=== PATIENT | female | born 1960 | race Two or more races ===

== ENCOUNTER → 2021-04-28 | Outpatient (CLI) | payer MEDICAID ==
[~2021-04-28] MED LIST: BENZ0.5T19 PO; CEPH250C28 PO; CILO100T PO; FURO20TA3 PO; GLIP5TAB12 PO; HYDR-4609 PO; LOSA-69 PO; METO-158 PO; OMEP-260 PO; PARO-135 PO; POTA-220 PO
[2021-04-28 10:25] VITALS: BP 113/71
[2021-04-28 10:40] VITALS: BP 119/63
[2021-04-28 12:03] LABS: Calcium 9.2 mg/dL (8.5-10.1); Potassium 3.8 mmol/L (3.5-5.1)
[2021-04-28 12:05] LABS: BUN/Creatinine Ratio 17.5
[2021-04-28 12:06] LABS: INR 1.04 (0.9-1.15); Partial Thromboplastin Time 30.2 sec (23.6-33.0)
[2021-04-28 12:12] LABS: Basophils # (auto) 0 10 ^3/uL (0-0.2); Basophils % (auto) 0.5 % (0.0-2.0); Eosinophils # (auto) 0.2 10 ^3/uL (0-0.8); Eosinophils % (auto) 2.8 % (0.0-7.0); Hematocrit 36.9 % (36.0-46.0); Hemoglobin 12.5 g/dL (12.2-16.2); Lymphocytes # (auto) 1.9 10 ^3/uL (0.4-5.4); Mean Corpuscular Hemoglobin 28.7 pg (28.0-32.0); Mean Corpuscular Hgb Conc. 33.8 g/dL (32.0-36.0); Monocytes # (auto) 0.7 10 ^3/uL (0-1.3); Monocytes % (auto) 8.5 % (0.0-12.0); Neutrophils # (auto) 5.4 10 ^3/uL (1.6-8.6); Neutrophils % (auto) 65.2 % (37.0-80.0); Red Blood Cells 4.34 10^6/uL (4.0-5.20); White Blood Cell 8.3 10^3/uL (4.4-10.8)
== END | disposition home or self-care (01) ==
LOC: Rad HDHVI 10:08
PROVIDERS: ATTEND Internal Medicine Cardiovascular Disease
DX: Z01.812 Encounter for preprocedural laboratory examination (principal); I11.0 Hypertensive heart disease with heart failure; I50.9 Heart failure, unspecified; R06.02 Shortness of breath; E66.9 Obesity, unspecified; I70.0 Atherosclerosis of aorta
CPT/HCPCS: 36415; 71046; 80048; 85025; 85610; 85730; 93005; G0463

== ENCOUNTER 2021-05-01 07:05 | Day surgery (SDC) | payer MEDICAID ==
[2021-05-01] VITALS (7 sets, daily range): BP systolic 90–127; BP diastolic 60–80
[~2021-05-01] VITALS: Ht 175.3 cm; Wt 142.9 kg
[2021-05-01] MEDS ORDERED: IOHEXOL 350 MG/ML 100ML IJ ONE (09:31)
[2021-05-01] MEDS ORDERED: LIDOCAINE 2%HCL (LOCAL ANESTH.) INJ 20ML MDV ONE (09:31)
[2021-05-01] MEDS ORDERED: ANGIOMAX 250 MG VIAL IV ONE (10:48)
[2021-05-01] MEDS ORDERED: fentaNYL CITRATE 100 MCG/2 ML VL ONE (10:48)
[2021-05-01] MEDS ORDERED: MIDAZOLAM HCL 2MG/2ML 2ml VIAL (1mg/ml) ONE (10:49)
[2021-05-01] MEDS ORDERED: SODIUM CHL 0.9% 0 ML ONE (10:49)
== END 2021-05-01 13:25 | disposition home or self-care (01) ==
LOC: CATH 07:05
PROVIDERS: ATTEND Internal Medicine Cardiovascular Disease
DX: R07.9 Chest pain, unspecified (principal); I42.0 Dilated cardiomyopathy; E66.01 Morbid (severe) obesity due to excess calories; I11.0 Hypertensive heart disease with heart failure; I50.20 Unspecified systolic (congestive) heart failure; E11.42 Type 2 diabetes mellitus with diabetic polyneuropathy; E78.5 Hyperlipidemia, unspecified; Z82.49 Family history of ischemic heart disease and other diseases of the circulatory system; Z86.79 Personal history of other diseases of the circulatory system; Z20.822 Contact with and (suspected) exposure to COVID-19; Z68.42 Body mass index [BMI] 45.0-49.9, adult
CPT/HCPCS: 93458; C1760; C1894; J1644; J2250; J3010; Q9967; U0003; 99152

== ENCOUNTER 2021-06-04 15:29 | Emergency (ER) | payer MEDICAID ==
[~2021-06-04] VITALS: Ht 177.8 cm; Wt 137.9 kg
[2021-06-04 16:28] LABS: Basophils # (auto) 0 10 ^3/uL (0-0.2); Basophils % (auto) 0.5 % (0.0-2.0); Eosinophils # (auto) 0 10 ^3/uL (0-0.8); Eosinophils % (auto) 0.7 % (0.0-7.0); Hematocrit 39.6 % (36.0-46.0); Hemoglobin 13.6 g/dL (12.2-16.2); Lymphocytes # (auto) 1.2 10 ^3/uL (0.4-5.4); Lymphocytes % (auto) 17.6 % (10.0-50.0); Mean Corpuscular Hgb Conc. 34.2 g/dL (32.0-36.0); Mean Corpuscular Volume 84.7 fL (80.0-100.0); Monocytes # (auto) 0.8 10 ^3/uL (0-1.3); Monocytes % (auto) 11.3 % (0.0-12.0); Neutrophils # (auto) 4.8 10 ^3/uL (1.6-8.6); Neutrophils % (auto) 69.9 % (37.0-80.0); Nucleated Red Blood Cells % 0.1 %; Red Blood Cells 4.68 10^6/uL (4.0-5.20); Red Cell Distribution Width 13.9 % (11.8-14.3); White Blood Cell 6.8 10^3/uL (4.4-10.8)
[2021-06-04 16:40] LABS: Albumin 3.5 g/dL (3.4-5.0); Potassium 3.9 mmol/L (3.5-5.1)
[2021-06-04 16:44] LABS: Bilirubin, Total 0.3 mg/dL (0.2-1.0); Total Protein 8.2 g/dL (6.4-8.2)
[2021-06-04 17:41] VITALS: BP 125/66
== END 2021-06-04 17:51 | disposition home or self-care (01) ==
LOC: ER 15:29
DX: R06.02 Shortness of breath (principal); Z20.822 Contact with and (suspected) exposure to COVID-19
CPT/HCPCS: 36415; 71045; 80053; 84484; 85025; 87426; 93005

== ENCOUNTER 2021-06-12 00:10 | Emergency (ER) | payer MEDICAID ==
[2021-06-12 02:44] LABS: Basophils # (auto) 0.1 10 ^3/uL (0-0.2); Basophils % (auto) 0.5 % (0.0-2.0); Eosinophils # (auto) 0.2 10 ^3/uL (0-0.8); Eosinophils % (auto) 1.8 % (0.0-7.0); Hematocrit 41.1 % (36.0-46.0); Hemoglobin 13.9 g/dL (12.2-16.2); Lymphocytes # (auto) 2.5 10 ^3/uL (0.4-5.4); Mean Corpuscular Hemoglobin 29.1 pg (28.0-32.0); Mean Corpuscular Hgb Conc. 33.7 g/dL (32.0-36.0); Mean Corpuscular Volume 86.4 fL (80.0-100.0); Monocytes # (auto) 0.7 10 ^3/uL (0-1.3); Monocytes % (auto) 7.2 % (0.0-12.0); Neutrophils # (auto) 6.9 10 ^3/uL (1.6-8.6); Neutrophils % (auto) 66.5 % (37.0-80.0); Nucleated Red Blood Cells % 0.3 %; Red Blood Cells 4.76 10^6/uL (4.0-5.20); Red Cell Distribution Width 13.9 % (11.8-14.3); White Blood Cell 10.4 10^3/uL (4.4-10.8)
[2021-06-12 03:03] LABS: Albumin 3.4 g/dL (3.4-5.0); Calcium 8.8 mg/dL (8.5-10.1); Potassium 3.9 mmol/L (3.5-5.1)
[2021-06-12 03:09] LABS: Bilirubin, Total 0.2 mg/dL (0.2-1.0); Total Protein 7.9 g/dL (6.4-8.2)
[2021-06-12 06:10] VITALS: BP 98/57
== END 2021-06-12 06:46 | disposition home or self-care (01) ==
LOC: EDBD 00:10 → ER 00:10
DX: G51.0 Bell's palsy (principal); Z79.899 Other long term (current) drug therapy
CPT/HCPCS: 36415; 70450; 80053; 84484; 85025; 93005

== ENCOUNTER 2022-02-17 04:03 | Inpatient (IN) | payer MEDICAID ==
[~2022-02-17] VITALS: Ht 175.3 cm; Wt 134.5 kg
[2022-02-17] MEDS ORDERED: NITROGLYCERIN 0.4 MG SL TAB SL ONE (04:15)
[2022-02-17] MEDS ORDERED: ASPirin 325 MG TAB PO ONE (04:15)
[2022-02-17] MEDS ORDERED: FUROSEMIDE 20 MG/2 ML VIAL IV ONE (05:30)
[2022-02-17 05:36] LABS: Basophils # (auto) 0 10 ^3/uL (0-0.2); Basophils % (auto) 0.5 % (0.0-2.0); Eosinophils # (auto) 0.2 10 ^3/uL (0-0.8); Eosinophils % (auto) 2.5 % (0.0-7.0); Hematocrit 34.4 % (36.0-46.0); Hemoglobin 11.5 g/dL (12.2-16.2); Lymphocytes # (auto) 2.8 10 ^3/uL (0.4-5.4); Lymphocytes % (auto) 36.6 % (10.0-50.0); Mean Corpuscular Hemoglobin 28.8 pg (28.0-32.0); Mean Corpuscular Hgb Conc. 33.5 g/dL (32.0-36.0); Mean Corpuscular Volume 85.9 fL (80.0-100.0); Monocytes # (auto) 0.8 10 ^3/uL (0-1.3); Monocytes % (auto) 11.3 % (0.0-12.0); Neutrophils # (auto) 3.7 10 ^3/uL (1.6-8.6); Neutrophils % (auto) 49.1 % (37.0-80.0); Red Cell Distribution Width 13.6 % (11.8-14.3); White Blood Cell 7.5 10^3/uL (4.4-10.8)
[2022-02-17 05:49] LABS: Urine Bacteria MOD /hpf (None Seen); Urine Blood Negative /uL (Negative); Urine Mucus FEW (None Seen); Urine Specific Gravity 1.013 (1.001-1.035); Urine WBC 343 /hpf (0 - 5)
[2022-02-17 06:01] LABS: Potassium 3.7 mmol/L (3.5-5.1)
[2022-02-17 06:06] LABS: Albumin 3.5 g/dL (3.4-5.0); BUN/Creatinine Ratio 18.8; Calcium 9.7 mg/dL (8.5-10.1)
[2022-02-17 06:09] LABS: Bilirubin, Total 0.2 mg/dL (0.2-1.0); Total Protein 6.6 g/dL (6.4-8.2)
[2022-02-17] MEDS ORDERED: cefTRIAXone 1GM/50ML D5W 50 ML IV ONE (11:00)
[2022-02-17] MEDS ORDERED: MORPHINE SULFATE INJ 2 MG/ml SYRG IV PRN (11:00)
[2022-02-17] MEDS ORDERED: ONDANSETRON HCL 4 MG/2 ML VIAL IV PRN (11:00)
[2022-02-17] MEDS ORDERED: NITROGLYCERIN 0.4 MG SL TAB SL PRN (11:00)
[2022-02-17 23:35] VITALS: BP 125/66
[2022-02-18 05:00] VITALS: BP 141/81
[2022-02-18 05:35] LABS: Basophils # (auto) 0 10 ^3/uL (0-0.2); Basophils % (auto) 0.5 % (0.0-2.0); Eosinophils # (auto) 0.2 10 ^3/uL (0-0.8); Eosinophils % (auto) 2.5 % (0.0-7.0); Hemoglobin 11.9 g/dL (12.2-16.2); Lymphocytes # (auto) 2.3 10 ^3/uL (0.4-5.4); Lymphocytes % (auto) 29.2 % (10.0-50.0); Mean Corpuscular Hemoglobin 28.7 pg (28.0-32.0); Mean Corpuscular Hgb Conc. 33.9 g/dL (32.0-36.0); Mean Corpuscular Volume 84.5 fL (80.0-100.0); Monocytes # (auto) 0.7 10 ^3/uL (0-1.3); Monocytes % (auto) 9.2 % (0.0-12.0); Neutrophils # (auto) 4.6 10 ^3/uL (1.6-8.6); Neutrophils % (auto) 58.6 % (37.0-80.0); Nucleated Red Blood Cells % 0.1 %; Red Blood Cells 4.14 10^6/uL (4.0-5.20); Red Cell Distribution Width 13.7 % (11.8-14.3); White Blood Cell 7.9 10^3/uL (4.4-10.8)
[2022-02-18 05:38] LABS: Albumin 3.2 g/dL (3.4-5.0); Calcium 8.9 mg/dL (8.5-10.1); Potassium 3.6 mmol/L (3.5-5.1)
[2022-02-18 05:44] LABS: BUN/Creatinine Ratio 19.1; Bilirubin, Total 0.5 mg/dL (0.2-1.0)
[2022-02-18 09:00] VITALS: BP 137/80
[2022-02-18] MEDS: cefTRIAXone 1GM/50ML D5W 50 ML IV SCH (09:30)
[2022-02-18] MEDS: POTASSIUM CHL 10 Meq TABLET PO SCH (10:00)
[2022-02-18] MEDS ORDERED: ENOXAPARIN SOD 40 MG/0.4 ML SYRINGE SC SCH (10:00)
[2022-02-18] MEDS ORDERED: FUROSEMIDE 20 MG/2 ML VIAL IV SCH (10:00)
[2022-02-18 13:00] VITALS: BP 123/66
[2022-02-18] MEDS ORDERED: PANTOPRAZOLE 40 MG TAB PO ONE (13:45)
[2022-02-18] MEDS ORDERED: HYDROcodone-ACET 7.5/325MG TAB PO PRN (13:45)
[2022-02-18] MEDS ORDERED: DEXTROSE (50%) 50ML SYRG IV PRN (14:00)
[2022-02-18 14:37] VITALS: BP 123/66
[2022-02-18] MEDS: InsuLIN REG 1unit/0.01ml Soln (100units/ml) SC SCH ×2 (17:00→22:00)
[2022-02-18 17:01] VITALS: BP 125/63
[2022-02-18] MEDS: ACCU-CHEK COMFORT CURVE STRIP VI SCH ×2 (17:29→22:08)
[2022-02-18] MEDS ORDERED: PRAV20TA3 PO (18:41)
[2022-02-18 22:00] VITALS: BP 120/69
[2022-02-18] MEDS: ATORVASTATIN 20 MG TAB PO SCH (22:08)
[2022-02-18] MEDS: CILOSTAZOL 100 MG TAB PO SCH (22:08)
[2022-02-19 05:00] VITALS: BP 132/86
[2022-02-19] MEDS: ACCU-CHEK COMFORT CURVE STRIP VI SCH ×4 (06:18→21:47)
[2022-02-19] MEDS: InsuLIN REG 1unit/0.01ml Soln (100units/ml) SC SCH ×4 (06:23→21:48)
[2022-02-19 08:00] VITALS: BP 117/70
[2022-02-19] MEDS: cefTRIAXone 1GM/50ML D5W 50 ML IV SCH (09:20)
[2022-02-19] MEDS: ASPirin 81 mg TAB PO SCH (09:20)
[2022-02-19] MEDS: LOSARTAN POTASSIUM 50 MG TAB PO SCH (09:21)
[2022-02-19] MEDS: PANTOPRAZOLE 40 MG TAB PO SCH (09:21)
[2022-02-19] MEDS: POTASSIUM CHL 10 Meq TABLET PO SCH (09:21)
[2022-02-19] MEDS: FUROSEMIDE 20 MG TAB PO SCH (09:21)
[2022-02-19] MEDS: CILOSTAZOL 100 MG TAB PO SCH ×2 (09:22→21:35)
[2022-02-19] MEDS: PARoxetine 20 MG TAB PO SCH (09:22)
[2022-02-19] MEDS: BENZTROPINE MESY 0.5 MG TAB PO SCH (09:23)
[2022-02-19 12:00] VITALS: BP 130/89
[2022-02-19 16:00] VITALS: BP 105/69
[2022-02-19] MEDS: ATORVASTATIN 20 MG TAB PO SCH (21:36)
[2022-02-19] MEDS: CARVEDILOL 3.125 MG TAB PO SCH (21:36)
[2022-02-19 22:00] VITALS: BP 126/72
[2022-02-20 05:00] VITALS: BP 102/58
[2022-02-20] MEDS: ACCU-CHEK COMFORT CURVE STRIP VI SCH ×2 (06:08→12:29)
[2022-02-20] MEDS: InsuLIN REG 1unit/0.01ml Soln (100units/ml) SC SCH ×2 (06:08→11:30)
[2022-02-20] MEDS: CARVEDILOL 3.125 MG TAB PO SCH ×2 (09:11→10:11)
[2022-02-20] MEDS: cefTRIAXone 1GM/50ML D5W 50 ML IV SCH (09:11)
[2022-02-20] MEDS: PANTOPRAZOLE 40 MG TAB PO SCH (09:12)
[2022-02-20] MEDS: POTASSIUM CHL 10 Meq TABLET PO SCH (09:12)
[2022-02-20] MEDS: PARoxetine 20 MG TAB PO SCH (09:12)
[2022-02-20] MEDS: CILOSTAZOL 100 MG TAB PO SCH (09:12)
[2022-02-20] MEDS: ASPirin 81 mg TAB PO SCH (09:13)
[2022-02-20] MEDS: LOSARTAN POTASSIUM 50 MG TAB PO SCH (09:13)
[2022-02-20] MEDS: FUROSEMIDE 20 MG TAB PO SCH (09:13)
[2022-02-20] MEDS: BENZTROPINE MESY 0.5 MG TAB PO SCH (09:14)
[2022-02-20 10:00] VITALS: BP 106/48
[2022-02-20] MEDS ORDERED: POTA10TA32 PO (10:12)
[2022-02-20] MEDS ORDERED: LEVO500T31 PO (10:12)
[2022-02-20] MEDS ORDERED: FURO1TAB33 PO (10:12)
[2022-02-20 11:45] VITALS: BP 101/74
== END 2022-02-20 14:05 | disposition home or self-care (01) | DRG 243 ==
LOC: EDBD 04:03 → ER 04:03 → TELE 10:51 → TELE-CENTR 23:35
PROVIDERS: ADMIT Registered Nurse; ATTEND Internal Medicine
DX: K21.9 Gastro-esophageal reflux disease without esophagitis (principal); I50.43 Acute on chronic combined systolic (congestive) and diastolic (congestive) heart failure; E11.51 Type 2 diabetes mellitus with diabetic peripheral angiopathy without gangrene; I11.0 Hypertensive heart disease with heart failure; E66.01 Morbid (severe) obesity due to excess calories; E78.5 Hyperlipidemia, unspecified; N39.0 Urinary tract infection, site not specified; N31.9 Neuromuscular dysfunction of bladder, unspecified; Z20.822 Contact with and (suspected) exposure to COVID-19; G89.29 Other chronic pain; G47.30 Sleep apnea, unspecified; Z79.899 Other long term (current) drug therapy; Z68.41 Body mass index [BMI] 40.0-44.9, adult
CPT/HCPCS: 36415; 71045; 80053; 81001; 82962; 83036; 83880; 84443; 84484; 85025; 85379; 93005; 93306; 94660; 96365; 96375; 97116; 97163; 97530; G0378; J0696; J1815

== ENCOUNTER → 2022-03-10 | Outpatient (CLI) | payer MEDICAID ==
[~2022-03-10] MED LIST changes: -CEPH250C28 PO; +FURO1TAB33 PO; +LEVO500T31 PO; +POTA10TA32 PO; +PRAV20TA3 PO
== END | disposition home or self-care (01) ==
LOC: Rad HDHVI 11:04
PROVIDERS: ATTEND Internal Medicine Cardiovascular Disease
DX: I70.0 Atherosclerosis of aorta (principal); M47.814 Spondylosis without myelopathy or radiculopathy, thoracic region; R06.02 Shortness of breath; I25.10 Atherosclerotic heart disease of native coronary artery without angina pectoris; G47.33 Obstructive sleep apnea (adult) (pediatric)
CPT/HCPCS: 71046

== ENCOUNTER 2023-01-05 03:23 | Inpatient (IN) | payer MEDICAID ==
[~2023-01-05] VITALS: Ht 165.1 cm; Wt 114.4 kg
[~2023-01-05 03:23] MED LIST changes: -LOSA-69 PO; +LOSA50TA46 PO; -OMEP-260 PO; +OMEP1CAP70 PO; +POTA-228 PO; -POTA10TA32 PO
[2023-01-05 04:02] LABS: INR 1.06 (0.9-1.15); Partial Thromboplastin Time 29.1 SEC (24.5-34.5)
[2023-01-05 04:07] LABS: Albumin 3.2 g/dL (3.4-5.0); Magnesium 2.3 mg/dL (1.6-2.6)
[2023-01-05 04:10] LABS: BUN/Creatinine Ratio 12.6 (10.0-20.0); Bilirubin, Total 0.2 mg/dL (0.2-1.0)
[2023-01-05 04:22] LABS: Basophils # (auto) 0 10 ^3/uL (0-0.2); Basophils % (auto) 0.7 % (0.0-2.0); Eosinophils # (auto) 0.2 10 ^3/uL (0-0.8); Eosinophils % (auto) 2.6 % (0.0-7.0); Hematocrit 34.7 % (36.0-46.0); Hemoglobin 11.8 g/dL (12.2-16.2); Lymphocytes # (auto) 2.9 10 ^3/uL (0.4-5.4); Lymphocytes % (auto) 40.1 % (10.0-50.0); Mean Corpuscular Hemoglobin 29.3 pg (28.0-32.0); Mean Corpuscular Volume 86.3 fL (80.0-100.0); Monocytes # (auto) 0.6 10 ^3/uL (0-1.3); Monocytes % (auto) 8.8 % (0.0-12.0); Neutrophils # (auto) 3.5 10 ^3/uL (1.6-8.6); Neutrophils % (auto) 47.8 % (37.0-80.0); Nucleated Red Blood Cells % 0.1 %; Red Blood Cells 4.03 10^6/uL (4.0-5.20); White Blood Cell 7.2 10^3/uL (4.4-10.8)
[2023-01-05] MEDS ORDERED: IODIXANOL 320MG/ML 100ML BTL IV ONE (05:00)
[2023-01-05] MEDS ORDERED: NITROGLYCERIN 0.4 MG SL TAB SL PRN (06:45)
[2023-01-05] MEDS ORDERED: MORPHINE SULFATE INJ 2 MG/ml SYRG IV PRN (06:45)
[2023-01-05] MEDS ORDERED: DEXTROSE (50%) 50ML SYRG IV PRN (06:45)
[2023-01-05] MEDS ORDERED: ACETAMINOPHEN 325 MG TAB PO PRN (06:45)
[2023-01-05] MEDS ORDERED: ONDANSETRON HCL 4 MG/2 ML VIAL IV PRN (06:45)
[2023-01-05] MEDS: ACCU-CHEK COMFORT CURVE STRIP VI SCH ×4 (07:38→21:41)
[2023-01-05] MEDS: InsuLIN REG 1unit/0.01ml Soln (100units/ml) SC SCH ×4 (07:38→21:41)
[2023-01-05 07:40] VITALS: PULSE 87; RESP 18; O2SAT 95
[2023-01-05] MEDS ORDERED: PANTOPRAZOLE 40 MG TAB PO SCH (10:00)
[2023-01-05] MEDS: ENOXAPARIN SOD 40 MG/0.4 ML SYRINGE SC SCH (11:00)
[2023-01-05] MEDS: PARoxetine 20 MG TAB PO SCH (11:01)
[2023-01-05] MEDS: ASPirin 81 mg TAB PO SCH (11:01)
[2023-01-05 14:51] VITALS: RESP 18; O2SAT 95
[2023-01-05] MEDS ORDERED: FUROSEMIDE 20 MG TAB PO SCH (18:00)
[2023-01-05 21:55] LABS: Urine Bacteria FEW /hpf (None Seen); Urine Blood TRACE /uL (Negative); Urine Specific Gravity 1.021 (1.001-1.035); Urine WBC 1217 /hpf (0 - 5); Urine WBC Clumps PRESENT /hpf (None Seen)
[2023-01-05] MEDS ORDERED: ATORVASTATIN 20 MG TAB PO SCH (22:00)
[2023-01-05 22:07] LABS: Amphetamine Screen, Urine NEGATIVE (NEGATIVE); Barbiturate Scree,Urine NEGATIVE (NEGATIVE); Benzodiazephine Screen, Urine NEGATIVE (NEGATIVE); Cannabinoid Screen, Urine NEGATIVE (NEGATIVE); Cocaine Screen, Urine NEGATIVE (NEGATIVE); Opiate Scree,Urine NEGATIVE (NEGATIVE); Phencyclidine Screen, Urine NEGATIVE (NEGATIVE)
[2023-01-06 00:09] VITALS: BP 113/73; PULSE 72; RESP 18; TEMP 97.8; O2SAT 96
[2023-01-06 05:00] VITALS: BP 119/53; PULSE 71; RESP 16; TEMP 98.4; O2SAT 98
[2023-01-06] MEDS: ACCU-CHEK COMFORT CURVE STRIP VI SCH ×2 (06:27→11:30)
[2023-01-06] MEDS: InsuLIN REG 1unit/0.01ml Soln (100units/ml) SC SCH ×2 (06:27→14:20)
[2023-01-06 06:49] LABS: Basophils # (auto) 0 10 ^3/uL (0-0.2); Basophils % (auto) 0.5 % (0.0-2.0); Eosinophils # (auto) 0.3 10 ^3/uL (0-0.8); Eosinophils % (auto) 3.9 % (0.0-7.0); Hemoglobin 11.6 g/dL (12.2-16.2); Lymphocytes # (auto) 1.6 10 ^3/uL (0.4-5.4); Lymphocytes % (auto) 23.1 % (10.0-50.0); Mean Corpuscular Hemoglobin 29.4 pg (28.0-32.0); Mean Corpuscular Hgb Conc. 34.2 g/dL (32.0-36.0); Monocytes # (auto) 0.6 10 ^3/uL (0-1.3); Monocytes % (auto) 8.5 % (0.0-12.0); Neutrophils # (auto) 4.5 10 ^3/uL (1.6-8.6); Red Blood Cells 3.95 10^6/uL (4.0-5.20); Red Cell Distribution Width 13.7 % (11.8-14.3)
[2023-01-06 06:57] LABS: BUN/Creatinine Ratio 12.7 (10.0-20.0); Calcium 8.8 mg/dL (8.5-10.1); Potassium 3.9 mmol/L (3.5-5.1)
[2023-01-06 08:00] VITALS: PULSE 71
[2023-01-06 08:09] VITALS: BP 121/60; PULSE 75; RESP 19; TEMP 98; O2SAT 95
[2023-01-06] MEDS ORDERED: HYDROcodone-ACET 10/325MG TAB PO PRN (08:15)
[2023-01-06] MEDS: ENOXAPARIN SOD 40 MG/0.4 ML SYRINGE SC SCH (09:37)
[2023-01-06] MEDS: ASPirin 81 mg TAB PO SCH (09:37)
[2023-01-06] MEDS: PARoxetine 20 MG TAB PO SCH (09:37)
[2023-01-06 13:00] VITALS: BP 134/88; PULSE 64; RESP 21; TEMP 97.3; O2SAT 100
== END 2023-01-06 14:18 | disposition home or self-care (01) | DRG 203 ==
LOC: EDBD 03:23 → ER 03:23 → TELE 06:51 → TELE-EAST 23:14
PROVIDERS: ADMIT Internal Medicine; ATTEND Nurse Practitioner
DX: M94.0 Chondrocostal junction syndrome [Tietze] (principal); N17.9 Acute kidney failure, unspecified; I11.0 Hypertensive heart disease with heart failure; I95.9 Hypotension, unspecified; E11.42 Type 2 diabetes mellitus with diabetic polyneuropathy; E11.51 Type 2 diabetes mellitus with diabetic peripheral angiopathy without gangrene; I50.32 Chronic diastolic (congestive) heart failure; R07.89 Other chest pain; E78.5 Hyperlipidemia, unspecified; E66.9 Obesity, unspecified; E66.01 Morbid (severe) obesity due to excess calories; J44.9 Chronic obstructive pulmonary disease, unspecified; Z88.5 Allergy status to narcotic agent; Z68.41 Body mass index [BMI] 40.0-44.9, adult
CPT/HCPCS: 36415; 71045; 71275; 80048; 80053; 80307; 81001; 82962; 83735; 83880; 84484; 85025; 85379; 85610; 85730; 93005; 96372; G0378; Q9967

== ENCOUNTER → 2024-01-04 | Outpatient (CLI) | payer MEDICAID ==
[~2024-01-04] MED LIST changes: -CILO100T PO; +CILO100T3 PO; -GLIP5TAB12 PO; +GLIP5TAB21 PO; +LOSA-534 PO; -LOSA50TA46 PO
== END | disposition home or self-care (01) ==
LOC: Rad HDHVI 13:50
PROVIDERS: ATTEND Internal Medicine Cardiovascular Disease
DX: I10 Essential (primary) hypertension (principal)
CPT/HCPCS: 93306

== ENCOUNTER → 2024-01-07 | Outpatient (CLI) | payer MEDICAID ==
[~2024-01-07] VITALS: Ht 175.3 cm; Wt 101.6 kg
[~2024-01-07] MED LIST changes: +ADENOSINE 85 MG in GIVE UN-DILUTED 0 ML IV ONE; +ADENOSINE 90 MG/30 ML INJ IV ONE; +BUDE1AER6 IN; +IVAB1.7T PO; +MAGN100T9 PO; +POM PO; +SEMA2INJ3 SC; +TEMA15CA2 PO
== END | disposition home or self-care (01) ==
LOC: Rad HDHVI 10:05
PROVIDERS: ATTEND Internal Medicine Cardiovascular Disease
DX: I11.0 Hypertensive heart disease with heart failure (principal); I50.33 Acute on chronic diastolic (congestive) heart failure; E78.00 Pure hypercholesterolemia, unspecified; I49.5 Sick sinus syndrome; E11.9 Type 2 diabetes mellitus without complications; I20.0 Unstable angina; Z82.49 Family history of ischemic heart disease and other diseases of the circulatory system
CPT/HCPCS: 78452; 93005; 96374; 96375; A9500; J0153

== ENCOUNTER → 2024-01-17 | Outpatient (CLI) | payer MEDICAID, OTHER ==
[~2024-01-17] MED LIST changes: -ADENOSINE 85 MG in GIVE UN-DILUTED 0 ML IV ONE; -ADENOSINE 90 MG/30 ML INJ IV ONE
[2024-01-17 14:15] VITALS: BP 112/77; PULSE 54; RESP 20; O2SAT 95
[2024-01-17 14:30] VITALS: BP 116/60; PULSE 58; RESP 20; O2SAT 95
[2024-01-17 16:16] LABS: Basophils # (auto) 0.1 10 ^3/uL (0-0.2); Basophils % (auto) 0.7 % (0.0-2.0); Eosinophils # (auto) 0.1 10 ^3/uL (0-0.8); Eosinophils % (auto) 1.7 % (0.0-7.0); Hematocrit 37.4 % (36.0-46.0); Hemoglobin 12.8 g/dL (12.2-16.2); Lymphocytes # (auto) 2.1 10 ^3/uL (0.4-5.4); Mean Corpuscular Hemoglobin 29.9 pg (28.0-32.0); Mean Corpuscular Hgb Conc. 34.2 g/dL (32.0-36.0); Mean Corpuscular Volume 87.5 fL (80.0-100.0); Monocytes # (auto) 0.7 10 ^3/uL (0-1.3); Monocytes % (auto) 8.8 % (0.0-12.0); Neutrophils # (auto) 4.8 10 ^3/uL (1.6-8.6); Neutrophils % (auto) 61.8 % (37.0-80.0); Red Blood Cells 4.27 10^6/uL (4.0-5.20); Red Cell Distribution Width 13.6 % (11.8-14.3); White Blood Cell 7.8 10^3/uL (4.4-10.8)
[2024-01-17 17:00] LABS: INR 1.06 (0.9-1.15); Partial Thromboplastin Time 28.8 SEC (24.5-34.5); Prothrombin Time 11.2 sec (9.3-11.8)
[2024-01-17 18:30] LABS: Anion Gap 6 (5-15); Carbon Dioxide 27 mmol/L (20-30); Chloride 107 mmol/L (98-107); Potassium 4.1 mmol/L (3.5-5.1); Sodium 140 mmol/L (136-145)
[2024-01-17 18:34] LABS: Glucose 86 mg/dL (74-106)
[2024-01-17 18:35] LABS: BUN/Creatinine Ratio 14.3 (10.0-20.0); Blood Urea Nitrogen 15 mg/dL (9-23)
== END | disposition home or self-care (01) ==
LOC: Rad HDHVI 14:06
PROVIDERS: ATTEND Internal Medicine Cardiovascular Disease
DX: Z01.818 Encounter for other preprocedural examination (principal); R06.02 Shortness of breath; R53.83 Other fatigue; R07.9 Chest pain, unspecified; I50.20 Unspecified systolic (congestive) heart failure
CPT/HCPCS: 36415; 71046; 80048; 85025; 85610; 85730; 93005; G0463

== ENCOUNTER 2024-01-20 10:05 | Day surgery (SDC) | payer OTHER, MEDICAID ==
[2024-01-20] VITALS (15 sets, daily range): BP systolic 81–223; BP diastolic 37–191; PULSE 50–57; RESP 11–15; TEMP 97.7; O2SAT 93–98
[~2024-01-20] VITALS: Ht 175.3 cm; Wt 100.7 kg
[2024-01-20] MEDS ORDERED: ANGIOMAX 250 MG VIAL IV ONE (11:36)
[2024-01-20] MEDS ORDERED: fentaNYL CITRATE 100 MCG/2 ML VL ONE (11:37)
[2024-01-20] MEDS ORDERED: SODIUM CHL 0.9% 0 ML ONE (11:38)
[2024-01-20] MEDS ORDERED: HEPARIN IN NS 1000Units/500mL 1,500 ML ONE (11:38)
[2024-01-20] MEDS ORDERED: MIDAZOLAM HCL 2MG/2ML 2ml VIAL (1mg/ml) ONE (11:38)
[2024-01-20] MEDS ORDERED: IOHEXOL 350 MG/ML 100ML IJ ONE (11:38)
[2024-01-20] MEDS ORDERED: LIDOCAINE 2%HCL (LOCAL ANESTH.) INJ 20ML MDV ONE (11:38)
[2024-01-20] MEDS: SODIUM CHLORIDE 0.9% 250 ML IV ONE (14:20)
== END 2024-01-20 15:10 | disposition home or self-care (01) ==
LOC: CATH 10:05
PROVIDERS: ATTEND Internal Medicine Cardiovascular Disease
DX: I47.20 Ventricular tachycardia, unspecified (principal); I11.0 Hypertensive heart disease with heart failure; I50.40 Unspecified combined systolic (congestive) and diastolic (congestive) heart failure; E78.5 Hyperlipidemia, unspecified; J44.9 Chronic obstructive pulmonary disease, unspecified; G47.30 Sleep apnea, unspecified; Z82.49 Family history of ischemic heart disease and other diseases of the circulatory system; Z80.0 Family history of malignant neoplasm of digestive organs
CPT/HCPCS: 93458; C1894; J1644; J2250; J3010; J7030; Q9967; 99152

== ENCOUNTER 2024-02-26 17:17 | Inpatient (IN) | payer OTHER, MEDICAID ==
[~2024-02-26] VITALS: Ht 177.8 cm; Wt 102.0 kg
[~2024-02-26 17:17] MED LIST changes: +BENZ0.5T PO; -BENZ0.5T19 PO; -FURO1TAB33 PO; -GLIP5TAB21 PO; -LEVO500T31 PO; -LOSA-534 PO; -POTA-220 PO; -POTA-228 PO; -PRAV20TA3 PO
[2024-02-26 19:29] LABS: Basophils # (auto) 0 10 ^3/uL (0-0.2); Basophils % (auto) 0.5 % (0.0-2.0); Eosinophils # (auto) 0.1 10 ^3/uL (0-0.8); Hematocrit 35.2 % (36.0-46.0); Hemoglobin 12.2 g/dL (12.2-16.2); Lymphocytes # (auto) 1.7 10 ^3/uL (0.4-5.4); Lymphocytes % (auto) 47.1 % (10.0-50.0); Mean Corpuscular Hemoglobin 30.2 pg (28.0-32.0); Mean Corpuscular Hgb Conc. 34.7 g/dL (32.0-36.0); Mean Corpuscular Volume 87.1 fL (80.0-100.0); Monocytes # (auto) 0.5 10 ^3/uL (0-1.3); Monocytes % (auto) 14.4 % (0.0-12.0); Neutrophils # (auto) 1.3 10 ^3/uL (1.6-8.6); Platelet Count (auto) 223 10^3/uL (140-450); Red Blood Cells 4.04 10^6/uL (4.0-5.20); Red Cell Distribution Width 13.4 % (11.8-14.3); White Blood Cell 3.7 10^3/uL (4.4-10.8)
[2024-02-26] MEDS: ALBUTEROL SULF 2.5 MG/0.5ML(0.5%) NEB SOLN NEB ONE (19:38)
[2024-02-26] MEDS: IPRATROPIUM BROM 0.5 MG/2.5ML INH SOL NEB ONE (19:38)
[2024-02-26 19:40] LABS: Alanine Aminotransferase 14 U/L (7-40); Alkaline Phosphatase 57 U/L (46-116); Anion Gap 5 (5-15); Aspartate Aminotransferase 15 U/L (13-40); BUN/Creatinine Ratio 9.5 (10.0-20.0); Bilirubin, Total 0.3 mg/dL (0.2-1.0); Blood Urea Nitrogen 10 mg/dL (9-23); Calcium 9.1 mg/dL (8.7-10.4); Carbon Dioxide 27 mmol/L (20-30); Chloride 108 mmol/L (98-107); Glucose 97 mg/dL (74-106); Potassium 3.6 mmol/L (3.5-5.1); Sodium 140 mmol/L (136-145); Total Protein 6.5 g/dL (5.7-8.2)
[2024-02-26 23:35] LABS: Urine Bacteria FEW /hpf (None Seen); Urine Blood TRACE /uL (Negative); Urine Clarity Ex.Turbid (Clear); Urine Color Colorless (Yellow); Urine Hyaline Cast FEW /lpf (0 - 2); Urine Mucus FEW (None Seen); Urine Protein, UAD Negative (Negative); Urine Specific Gravity 1.008 (1.001-1.035); Urine Urobilinogen Normal (Negative); Urine WBC 752 /hpf (0 - 5); Urine WBC Clumps PRESENT /hpf (None Seen)
[2024-02-26 23:50] VITALS: PULSE 55; RESP 20; O2SAT 98
[2024-02-26] MEDS: methylPREDNISolone SOD SUCC 125 MG/2 ML VL IV ONE (23:50)
[2024-02-27 00:32] LABS: Rapid Influenza A Negative (Negative); Rapid Influenza B Negative (Negative)
[2024-02-27 00:34] LABS: COVID19 ANTIGEN SOFIA FIA POSITIVE (NEGATIVE)
[2024-02-27] MEDS: cefTRIAXone 1GM/50ML D5W 50 ML IV ONE (00:45)
[2024-02-27] MEDS ORDERED: DEXTROSE (50%) 50ML SYRG IV PRN (02:15)
[2024-02-27] MEDS ORDERED: ONDANSETRON HCL 4 MG/2 ML VIAL IV PRN (02:15)
[2024-02-27] MEDS ORDERED: DOCUSATE SOD 100 MG CAP PO PRN (02:15)
[2024-02-27 02:32] VITALS: BP 119/62; PULSE 55; RESP 20; TEMP 98.2; O2SAT 98
[2024-02-27] MEDS ORDERED: MORPHINE SULFATE INJ 2 MG/ml SYRG IV PRN (03:45)
[2024-02-27] MEDS ORDERED: NITROGLYCERIN 0.4 MG SL TAB SL PRN (03:45)
[2024-02-27 04:00] VITALS: PULSE 62; RESP 17; O2SAT 99
[2024-02-27] MEDS: SODIUM CHLORIDE 0.9% 500 ML IV ONE (04:00)
[2024-02-27] MEDS: SODIUM CHLORIDE 0.9% 1,000 ML IV SCH (04:00)
[2024-02-27] MEDS: ACCU-CHEK COMFORT CURVE STRIP VI SCH (07:45)
[2024-02-27] MEDS: InsuLIN REG 1unit/0.01ml Soln (100units/ml) SC SCH (07:51)
[2024-02-27] MEDS: HYDROcodone-ACET 5/325MG TAB PO PRN (08:06)
[2024-02-27] MEDS: cefTRIAXone 1GM/50ML D5W 50 ML IV SCH (09:00)
[2024-02-27 09:36] LABS: Alanine Aminotransferase 12 U/L (7-40); Albumin 4.5 g/dL (3.2-4.8); Alkaline Phosphatase 60 U/L (46-116); Anion Gap 16 (5-15); Aspartate Aminotransferase 17 U/L (13-40); Blood Urea Nitrogen 8 mg/dL (9-23); Calcium 9.8 mg/dL (8.7-10.4); Carbon Dioxide 17 mmol/L (20-30); Chloride 106 mmol/L (98-107); Glucose 106 mg/dL (74-106); Potassium 3.7 mmol/L (3.5-5.1); Sodium 139 mmol/L (136-145)
[2024-02-27 09:37] LABS: Bilirubin, Total 0.3 mg/dL (0.2-1.0); Total Protein 7.6 g/dL (5.7-8.2)
[2024-02-27] MEDS: DOXYCYCLINE 100MG/250ML 250 ML IV SCH (10:00)
[2024-02-27] MEDS: BUDESONIDE (INHALATION) 180 MCG IH IN SCH (10:00)
[2024-02-27] MEDS: MULTIPLE VITAMIN TAB PO SCH (10:26)
[2024-02-27] MEDS: DexAMETHasone SOD PHOS 10MG/1ML VIAL INJ IV SCH (10:26)
[2024-02-27] MEDS: ENOXAPARIN SOD 60 MG/0.6 ML SYRINGE SC SCH (10:26)
[2024-02-27] MEDS: ZINC SULFATE 220mg CAP or TAB PO SCH (10:26)
[2024-02-27] MEDS: FAMOTIDINE (10MG/ML) 2ML VL IV SCH (10:27)
[2024-02-27 12:58] VITALS: PULSE 54; RESP 15; O2SAT 99
[2024-02-27 19:53] VITALS: PULSE 47; RESP 12; TEMP 97.4; O2SAT 97
[2024-02-27 22:00] VITALS: O2SAT 99
[2024-02-27 23:15] VITALS: PULSE 61; RESP 19; O2SAT 97
[2024-02-27] MEDS: ALBUTEROL SULF HFA 90MCG INH 200DOSE IN PRN (23:17)
[2024-02-28 06:08] LABS: Basophils # (auto) 0 10 ^3/uL (0-0.2); Basophils % (auto) 0.1 % (0.0-2.0); Eosinophils # (auto) 0 10 ^3/uL (0-0.8); Hematocrit 34.6 % (36.0-46.0); Hemoglobin 11.9 g/dL (12.2-16.2); Lymphocytes # (auto) 1.5 10 ^3/uL (0.4-5.4); Lymphocytes % (auto) 23.4 % (10.0-50.0); Mean Corpuscular Hemoglobin 30.1 pg (28.0-32.0); Mean Corpuscular Hgb Conc. 34.5 g/dL (32.0-36.0); Mean Corpuscular Volume 87.3 fL (80.0-100.0); Monocytes # (auto) 0.8 10 ^3/uL (0-1.3); Neutrophils # (auto) 4.1 10 ^3/uL (1.6-8.6); Neutrophils % (auto) 64.5 % (37.0-80.0); Platelet Count (auto) 196 10^3/uL (140-450); Red Blood Cells 3.96 10^6/uL (4.0-5.20); Red Cell Distribution Width 13.2 % (11.8-14.3); White Blood Cell 6.4 10^3/uL (4.4-10.8)
[2024-02-28 06:22] LABS: Alanine Aminotransferase 10 U/L (7-40); Albumin 3.9 g/dL (3.2-4.8); Alkaline Phosphatase 51 U/L (46-116); Anion Gap 9 (5-15); Aspartate Aminotransferase 10 U/L (13-40); BUN/Creatinine Ratio 12.9 (10.0-20.0); Bilirubin, Total 0.3 mg/dL (0.2-1.0); Blood Urea Nitrogen 12 mg/dL (9-23); Carbon Dioxide 22 mmol/L (20-30); Chloride 109 mmol/L (98-107); Glucose 152 mg/dL (74-106); Potassium 3.2 mmol/L (3.5-5.1); Sodium 140 mmol/L (136-145); Total Protein 6.5 g/dL (5.7-8.2)
[2024-02-28 06:52] LABS: Calcium 9.2 mg/dL (8.7-10.4)
[2024-02-28 09:00] VITALS: O2SAT 96
[2024-02-28 10:12] VITALS: PULSE 61; RESP 19; O2SAT 98
[2024-02-28] MEDS: POTASSIUM CHL 20 Meq TABLET PO SCH (10:41)
[2024-02-28 12:00] VITALS: BP 147/74; O2SAT 96
[2024-02-28 13:00] VITALS: PULSE 75; RESP 24
[2024-02-28] MEDS: AZITHROMYCIN 250 MG TAB PO ONE (13:05)
[2024-02-28 14:09] LABS: Rapid Strep A Screen-Throat Negative
[2024-02-28] MEDS ORDERED: AZIT-43 PO (22:33)
== END 2024-02-28 13:55 | disposition home or self-care (01) | DRG 178 ==
LOC: ER 17:17 → TELE 02-27 03:40
PROVIDERS: ADMIT Internal Medicine Pulmonary Disease; ATTEND Internal Medicine Pulmonary Disease
DX: U07.1 COVID-19 (principal); I50.32 Chronic diastolic (congestive) heart failure; J44.1 Chronic obstructive pulmonary disease with (acute) exacerbation; N39.0 Urinary tract infection, site not specified; I11.0 Hypertensive heart disease with heart failure; E87.6 Hypokalemia; E11.9 Type 2 diabetes mellitus without complications; Z79.4 Long term (current) use of insulin; Z79.899 Other long term (current) drug therapy
CPT/HCPCS: 36415; 71045; 80053; 81001; 82962; 83605; 83735; 83880; 84484; 85025; 85379; 87070; 87086; 87088; 87186; 87426; 87804; 87880; 93970; 94640; 96365; 96375; G0378; J1100; J1815; J3490

== ENCOUNTER 2025-05-23 13:36 | Outpatient (CLI) | payer OTHER, MEDICAID ==
[~2025-05-23] VITALS: Ht 175.3 cm; Wt 93.9 kg
[~2025-05-23 13:36] MED LIST changes: +AZIT-43 PO
[2025-05-23] MEDS ORDERED: ADENOSINE 90 MG/30 ML INJ IV ONE (13:40)
[2025-05-23] MEDS ORDERED: ADENOSINE 79 MG in GIVE UN-DILUTED 0 ML IV ONE (15:45)
== END 2025-05-23 17:00 | disposition home or self-care (01) ==
LOC: Rad HDHVI 13:36
PROVIDERS: ATTEND Internal Medicine Cardiovascular Disease
DX: I49.1 Atrial premature depolarization (principal); I11.0 Hypertensive heart disease with heart failure; I50.33 Acute on chronic diastolic (congestive) heart failure; E78.00 Pure hypercholesterolemia, unspecified; J44.9 Chronic obstructive pulmonary disease, unspecified; I49.5 Sick sinus syndrome; E11.9 Type 2 diabetes mellitus without complications; R07.89 Other chest pain; R06.02 Shortness of breath; Z82.49 Family history of ischemic heart disease and other diseases of the circulatory system
CPT/HCPCS: 78452; 93017; A9500; J0153

== ENCOUNTER 2025-06-07 14:00 | Inpatient (IN) | payer MEDICARE, MEDICAID ==
[~2025-06-07] VITALS: Ht 175.3 cm; Wt 100.5 kg
--- NOTE | 2025-06-07 14:30 | ECG ---
[facility] Test Date: 2025-06-07 Test Time: 14:16:27 Pat Name: FADIA RUIZ Department: Room: 0292 Gender: F Habilitation Training Specialist: AMA : 1960 Requested By: EMERGENCY EMERGENCY Order Number: [id number] Reading MD: Arnoldo Sargent Measurements Intervals [place] Rate: 70 P: 59 FL: 140 QRS: 5 QRSD: 98 T: 79 QT: 401 QTc: 433 Interpretive Statements Sinus rhythm Electronically Signed On 06-08-2025 10:33:24 PST by Arnoldo Sargent Please click the below link to view image of tracing.
--- NOTE | 2025-06-07 15:10 | ED.PDOC ---
SOB-HPI HPI Comments 64 y/o F, with PMHx of COPD, CHF, DM and HTN presents to the ED for CC of cough. Patient states, she has had a productive cough with associated chest discomfort x2days. Patient describes sputum to be "green" in color. Patient denies shortness of breath, fever, chills, or sweats. 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 Hx Family History Family History: Reviewed,noncontributory to illness Social History Smoker: Non-Smoker Alcohol: Denies ETOH Use Drugs: Denies Drug Use Lives In: Home Constitutional: denies: chills, diaphoresis, fatigue, fever, malaise, sweats, weakness, others EENTM: denies: blurred vision, double vision, ear bleeding, ear discharge, ear drainage, ear pain, ear ringing, eye pain, eye redness, hearing loss, mouth pain, mouth swelling, nasal discharge, nose bleeding, nose congestion, nose pain, photophobia, tearing, throat pain, throat swelling, voice changes, others Respiratory: reports: cough; denies: hemoptysis, orthopnea, SOB at rest, shor tness of breath, SOB with excertion, stridor, wheezing, others Cardiovascular: reports: chest pain; denies: dizzy spells, diaphoresis, Dyspnea on exertion, edema, irregular heart beat, left arm pain, lightheadedness, palpitations, PND, syncope, others Gastrointestinal: denies: abdomen distended, abdominal pain, blood streaked bowels, constipated, diarrhea, dysphagia, difficulty swallowing, hematemesis, melena, nausea, poor appetite, poor fluid intake, rectal bleeding, rectal pain, vomiting, others Genitourinary: denies: abnormal vagina bleeding, burning, dyspareunia, dysuria, flank pain, frequency, hematuria, incontinence, pain, , vagina discharge, urgency, others Neurological: denies: dizziness, fainting, headache, left sided numbness, left sided weakness, numbness, paresthesia, pre-existing deficit, right sided numbness, right sided weakness, seizure, speech problems, tingling, tremors, weakness, others Musculoskeletal: denies: back pain, gout, joint pain, joint swelling, muscle pain, muscle stiffness, neck pain, others Integumetry: denies: bruises, change in color, change in hair/nails, dryness, laceration, lesions, lumps, rash, wounds, others Allergic/Immunocompromised: denies: Difficulty Healing, Frequent Infections, Hives, Itching, others Hematologic/Lymphatic: denies: anemia, blood clots, easy bleeding, easy bruising, swollen glands, others Endocrine: denies: excessive hunger, excessive sweating, excessive thirst, excessive urination, flushing, intolerance to cold, intolerance to heat, unexplained weight gain, unexplained weight loss, others Psychiatric: denies: anxiety, bipolar disorder, depression, hopeless, panic disorder, schizophrenia, sleepless, suicidal, others All Other Systems: Reviewed and Negative Physical Exam General Appearance: Moderate Distress HEENT: Normal ENT Inspection, Pharynx Normal, TMs Normal Neck: Full Range of Motion, Non-Tender, Normal, Normal Inspection Respiratory: Other (Coarse breath sounds) Cardiovascular: No Edema, No JVD, No Murmur, No Gallop, Normal Peripheral Pul ses, Regular Rate/Rhythm Breast Exam: Deferred Gastrointestinal: No Organomegaly, Non Tender, No Pulsatile Mass, Normal Bowel Sounds, Soft Genitalia: Deferred Pelvic: Deferred Rectal: Deferred Extremities: No calf tenderness, Normal capillary refill, Normal inspection, Normal range of motion, Non-tender, No pedal edema Musculoskeletal : Apperance: Normal Neurologic: Alert, water inspector II-XII nml as Tested, No Motor Deficits, Normal Affect, Normal Mood, No Sensory Deficits Cerebellar Function: Normal Reflexes: Normal Skin: Dry, Normal Color, Warm Peripheral Pulses: 3+ Radial (R), 3+ Radial (L) Lymphatic: No Adenopathy Was a procedure done? Was a procedure done?: No Differential Dx Differential Diagnosis: Anxiety, Asthma, Bronchitis, CHF, COPD, Pneumonia, Sinusitis, Pharyngitis, URI X-Ray, Labs, Meds, VS Vital Signs Date Time Temp Pulse Resp B/P (MAP) Pulse Ox O2 Delivery O2 Flow Rate FiO2 06/07/25 15:30 98.0 74 16 108/82 (91) 97 98.0 06/07/25 14:16 70 06/07/25 14:08 98.0 75 20 103/82 97 98.0 Lab Test 06/07/25 15:22 06/07/25 15:12 Range/Units Urine Color Light-brown Yellow Urine Clarity Ex.turbid Clear Urine pH 6.5 5.0-9.0 Urine Specific [place] 1.015 1.001-1.035 Urine Protein Trace H Negative Urine Ketones Negative Negative Urine Blood 1+ H Negative /uL Urine Nitrite 1+ H Negative Urine Bilirubin Negative Negative Urine Urobilinogen Normal Negative mg/dL Urine Leukocyte Esterase 3+ Negative /uL Urine RBC 11 0 - 4 /hpf Urine WBC Clumps Present None Seen /hpf Urine Microscopic WBC 1285 H 0-5 /HPF Urine Squamous Epithelial Cells Mod <5 /hpf Urine Bacteria Few H None Seen /hpf Urine Mucus Few None Seen Urine Yeast (Budding) Few None Seen /hpf Urine Glucose 4+ H Normal mg/dL White Blood Count 10.2 4.4-10.8 10^3/uL Red Blood Count 4.66 4.0-5.20 10^6/uL Hemoglobin 13.6 12.2-16.2 g/dL Hematocrit 40.3 36.0-46.0 % Mean Corpuscular Volume 86.5 80.0-100.0 fL Mean Corpuscular Hemoglobin 29.2 28.0-32.0 pg Mean Corpuscular Hemoglobin Concent 33.8 32.0-36.0 g/dL Red Cell Distribution Width 14.0 11.8-14.3 % Platelet Count 330 140-450 10^3/uL Mean Platelet Volume 8.0 6.9-10.8 fL Neutrophils (%) (Auto) 73.3 37.0-80.0 % Lymphocytes (%) (Auto) 16.6 10.0-50.0 % Monocytes (%) (Auto) 6.1 0.0-12.0 % Eosinophils (%) (Auto) 3.4 0.0-7.0 % Basophils (%) (Auto) 0.6 0.0-2.0 % Neutrophils # (Auto) 7.5 1.6-8.6 10 ^3/uL Lymphocytes # (Auto) 1.7 0.4-5.4 10 ^3/uL Monocytes # (Auto) 0.6 0-1.3 10 ^3/uL Eosinophils # (Auto) 0.3 0-0.8 10 ^3/uL Basophils # (Auto) 0.1 0-0.2 10 ^3/uL Nucleated Red Blood Cells 0.0 % Sodium Level 140 136-145 mmol/L Potassium Level 3.8 3.5-5.1 mmol/L Chloride Level 106 98-107 mmol/L Carbon Dioxide Level 21 20-31 mmol/L Anion Gap 13 5-15 Blood Urea Nitrogen 11 9-23 mg/dL Creatinine 1.15 H 0.550-1.02 mg/dL Glomerular Filtration Rate Calc 53 >90 mL/min BUN/Creatinine Ratio 9.6 L 10.0-20.0 Serum Glucose 222 H 74-106 mg/dL Calcium Level 9.5 8.7-10.4 mg/dL Troponin I High Sensitivity < 3 L </=34 ng/L B-Type Natriuretic Peptide 24.16 0-100 pg/mL Patient alert. Came in because of chest discomfort cough congestion. Vitals stable. Answering questions. No leg swelling pain History of CHF. Continues to have chest discomfort. Was given Lasix. EKG reviewed does not show any acute changes. Explained to the patient. Continue monitoring. [place] [id number] Ph: [phone] DIAGNOSTIC IMAGING Diagnostic Imaging Report : [id number] Signed PATIENT: FADIA RUIZ ACCT: [id number] UNIT: [id number] : 1960 LOC: ER ROOM / BED: / AGE / SEX: 64 / F ADM STATUS: REG ER SERVICE [id number] ORDERING PHYSICIAN: KATEY LAWSON MD PROCEDURE(s): CXRP - CHEST PORTABLE REASON: sob ORDER NUMBER(s): [id number], ACCESSION NUMBER(s): [id number] CHEST RADIOGRAPH INDICATION: sob TECHNIQUE: Single frontal view of the chest was obtained COMPARISON: XY CHEST PORTABLE on DOS: 02/28/24, XY CHEST PORTABLE on DOS: 02/26/24, XY CHEST TWO VIEWS ROUTINE on DOS: 01/17/24, XY CHEST PORTABLE on DOS: 01/05/23, CHEST TWO VIEWS ROUTINE on DOS: 03/10/22 FINDINGS: Lines and Tubes: None Lungs: Clear Pleura: No effusion. No pneumothorax. Cardiomediastinal contours: Unremarkable Bones: Unremarkable IMPRESSION: No acute disease. ATED BY: AXEL OTOOLE MD DICTATED DATE/TIME: 06/07/251537 SIGNED BY: AXEL OTOOLE MD SIGNED DATE/TIME: 06/07/251537 CC: Time of 1ST Reevaluation: 15:30 Reevaluation 1ST: Unchanged Patient Education/Counseling: Diagnosis, Treatment Family Education/Counseling: No Family Present SEPSIS Sepsis Screen Date sepsis recognized/suspect: Jun 07, 2025 Time Sepsis recognized/suspect: 1410 Recent Procedure: No On Antibiotic Therapy: No Respiratory Rate >20: No Heart Rate >90: Yes Temp<36 C (96.8 F) or >38.3 C: No SBP <90 or MAP <65 mmHG: No New Acute Mental Status Change: No Is the patient on CPAP, BIPAP,: No Physician Orders Chest Portable (06/07/25 15:05) Vital Signs Date Time Temp Pulse Resp B/P (MAP) Pulse Ox O2 Delivery O2 Flow Rate FiO2 06/07/25 15:30 98.0 74 16 108/82 (91) 97 98.0 06/07/25 14:16 70 06/07/25 14:08 98.0 75 20 103/82 97 98.0 Laboratory Tests Test 06/07/25 15:12 White Blood Count 10.2 10^3/uL (4.4-10.8) Departure 1 Departure Time of Disposition: 15:29 Impression: Primary Impression: CHF (congestive heart failure) Qualified Codes: I50.43 - Acute on chronic combined systolic (congestive) and diastolic (congestive) heart failure Disposition: ADMITTED INPATIENT Admit to: Med Surg Condition: Guarded Critical Care Note Critical Care Time?: No Stability Stability form required: No Heart Score Heart Score: Heart Score Response (Comments) Value History Slightly Suspicious 0 EKG Normal 0 Age >65 2 Risk Factors >3 or Hx ASHD 2 Troponin Normal limit 0 Total 4 I personally scribed for KATEY LAWSON MD ([email or web address]) on 06/07/25 at 15:10. Electronically submitted by Kaylie Livingston ([email or web address]). I personally scribed for KATEY LAWSON MD ([email or web address]) on 06/07/25 at 15:18. Electronically submitted by Kaylie Livingston ([email or web address]). I personally scribed for KATEY LAWSON MD ([email or web address]) on 06/07/25 at 15:23. Electronically submitted by Kaylie Livingston ([email or web address]). I personally scribed for KATEY LAWSON MD ([email or web address]) on 06/07/25 at 16:53. Electronically submitted by Kaylie Livingston [email or web address]). KATEY LAWSON MD Jun 07, 2025 15:10
[2025-06-07 15:31] LABS: Hematocrit 40.3 % (36.0-46.0); Hemoglobin 13.6 g/dL (12.2-16.2); Mean Corpuscular Hemoglobin 29.2 pg (28.0-32.0); Mean Corpuscular Volume 86.5 fL (80.0-100.0); Nucleated Red Blood Cells % 0.0 %
[2025-06-07 15:37] LABS: Chloride 106 mmol/L (98-107); Potassium 3.8 mmol/L (3.5-5.1); Sodium 140 mmol/L (136-145)
[2025-06-07 15:38] LABS: Anion Gap 13 (5-15); Calcium 9.5 mg/dL (8.7-10.4); Carbon Dioxide 21 mmol/L (20-31)
--- NOTE | 2025-06-07 15:41 | DVH ---
CHEST RADIOGRAPH INDICATION: sob TECHNIQUE: Single frontal view of the chest was obtained COMPARISON: XY CHEST PORTABLE on DOS: 02/28/24, XY CHEST PORTABLE on DOS: 02/26/24, XY CHEST TWO VIEWS ROUTINE on DOS: 01/17/24, XY CHEST PORTABLE on DOS: 01/05/23, CHEST TWO VIEWS ROUTINE on DOS: 03/10/22 FINDINGS: Lines and Tubes: None Lungs: Clear Pleura: No effusion. No pneumothorax. Cardiomediastinal contours: Unremarkable Bones: Unremarkable IMPRESSION: No acute disease.
[2025-06-07 15:43] LABS: BUN/Creatinine Ratio 9.6 (10.0-20.0); Blood Urea Nitrogen 11 mg/dL (9-23)
[2025-06-07 15:48] LABS: Urine Budding Yeast FEW /hpf (None Seen); Urine Protein, UAD TRACE (Negative); Urine WBC Clumps PRESENT /hpf (None Seen)
[2025-06-07 15:53] LABS: Glucose 222 mg/dL (74-106)
[2025-06-07] MEDS: FUROSEMIDE 40 MG/4 ML VIAL IV ONE (18:06)
[2025-06-07 23:59] VITALS: BP 116/67; PULSE 78; RESP 20; TEMP 97.8; O2SAT 98
[2025-06-08] VITALS (18 sets, daily range): BP systolic 100–149; BP diastolic 58–86; PULSE 63–86; RESP 15–20; TEMP 97.4–98.2; O2SAT 97–100
[2025-06-08] MEDS: ACETAMINOPHEN 325 MG TAB PO SCH
[2025-06-08] MEDS: AZITHROMYCIN 250 MG TAB PO ONE (00:16)
[2025-06-08 01:00] LABS: COVID19 ANTIGEN SOFIA FIA NEGATIVE (NEGATIVE)
[2025-06-08] MEDS ORDERED: DEXTROSE (50%) 50ML SYRG IV PRN (03:15)
--- NOTE | 2025-06-08 03:23 | DVHHPRES ---
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 patient states that she had flu-like symptoms last week and did not go to the hospital or take antibiotics and which resolved on its own, and denies any shortness of breath, nausea, vomiting, diarrhea. patient also has neurogenic bladder for which she does intermittent straight catheterization. PMHx:diabetes mellitus, COPD, CHF, hypertension, Gandhi's palsy PSHx: Denies Family history: father had esophageal cancer, sister leukemia Social history: denies smoking, drinking, drug use Home medication: furosemide, cilostazol, metoprolol, paroxetine, semaglutide, temazepam, Allergic history: tramadol Patient seen in the [facility]. Patient complains of cough with greenish sputum. Patient denies any shortness of breath, fever, chills, nausea, vomiting, diarrhea, chest pain at this moment. Review of Systems Constitutional: Yes: Fever, Chills Eyes: No: Pain, Vision change, Conjunctivae inflammation, Eyelid inflammation, Other, Redness ENT: No: Ear pain, Ear discharge, Nose pain, Nose discharge, Nose congestion, Mouth pain, Mouth swelling, Throat pain, Throat swelling, Other Respiratory: Cough, Dry, Shortness of breath, Sputum; No: SOB with excertion, Wheezing, Hemoptysis, Pleuritic Pain, Wheezing, Other Cardiovascular: Chest Pain; No: Palpitations, Orthopnea, Paroxysmal Noc. Dyspnea, Edema, Lt Headedness, Other Gastrointestinal: No: Nausea, Vomiting, Abdominal Pain, Diarrhea, Constipation, Melena, Hematochezia, Other Genitourinary: Dysuria; No Frequency; Incontinence; No Hematuria, No Retention, No Other Musculoskeletal: No: other, neck pain, shoulder pain, arm pain, back pain, hand pain, leg pain, foot pain Skin: No: Rash, Lesions, Jaundice, Bruising, Other Neurological: No: Weakness, Numbness, Incoordination, Change in speech, Confusion, Seizures, Other Allergies: Coded Allergies: Tramadol (Verified Allergy, Unknown, 01/17/24) Medications Current Medications Medications Dose Ordered Sig/Shelby Route Start Time Stop Time Status Last Admin Dose Admin Enoxaparin Sodium 40 mg DAILY SC 06/08/25 10:00 Acetaminophen 650 mg Q6HR PO 06/08/25 00:00 Ceftriaxone Sodium/Dextrose 50 ml @ 50 mls/hr DAILY IV 06/08/25 10:00 Azithromycin 500 mg DAILY PO 06/08/25 10:00 Albuterol 2.5 mg Q4HWA [facility] 06/08/25 06:00 Ipratropium [place] 0.5 mg Q4HWA [facility] 06/08/25 06:00 Exam Vital Signs Vital Signs Date Time Temp Pulse Resp B/P (MAP) Pulse Ox O2 Delivery O2 Flow Rate FiO2 06/08/25 01:28 66 16 98 Room Air* 0 21 06/08/25 01:28 98.1 100/58 (72) 98.1 Exam General: Patient alert and oriented in person, place and time. Patient following commands. HEENT: Normocephalic, atraumatic, moist mucous membranes Respiratory/pulmonary: diminished breath sounds bilaterally on auscultation Cardiovascular: Normal heart sounds S1 and S2 with no associated murmurs Abdomen: Abdomen nondistended, there is no pain to palpation in any of the abdominal quadrants, no palpable masses. Extremities: bilateral nonpitting edema Peripheral Pulses: 3+ Radial (R). 3+ Radial (L). 3+ Dorsalis pedis (R). 3+ Dorsalis pedis(L) Skin: No rashes or pruritus, there is no sacral edema present at this time. Neurological: Intact cranial nerves with no focal neurologic deficits Labs/Xrays Labs Test 06/07/25 23:55 06/07/25 23:42 06/07/25 15:22 06/07/25 15:12 Range/Units Influenza Type A Antigen Negative Negative Influenza Type B Antigen Negative Negative SARS-CoV-2 Antigen (Rapid) Negative NEGATIVE Lactic Acid Level 1.0 0.4-2.0 mmol/L Urine Color Light-brown Yellow Urine Clarity Ex.turbid Clear Urine pH 6.5 5.0-9.0 Urine Specific [place] 1.015 1.001-1.035 Urine Protein Trace H Negative Urine Ketones Negative Negative Urine Blood 1+ H Negative /uL Urine Nitrite 1+ H Negative Urine Bilirubin Negative Negative Urine Urobilinogen Normal Negative mg/dL Urine Leukocyte Esterase 3+ Negative /uL Urine RBC 11 0 - 4 /hpf Urine WBC Clumps Present None Seen /hpf Urine Microscopic WBC 1285 H 0-5 /HPF Urine Squamous Epithelial Cells Mod <5 /hpf Urine Bacteria Few H None Seen /hpf Urine Mucus Few None Seen Urine Yeast (Budding) Few None Seen /hpf Urine Glucose 4+ H Normal mg/dL White Blood Count 10.2 4.4-10.8 10^3/uL Red Blood Count 4.66 4.0-5.20 10^6/uL Hemoglobin 13.6 12.2-16.2 g/dL Hematocrit 40.3 36.0-46.0 % Mean Corpuscular Volume 86.5 80.0-100.0 fL Mean Corpuscular Hemoglobin 29.2 28.0-32.0 pg Mean Corpuscular Hemoglobin Concent 33.8 32.0-36.0 g/dL Red Cell Distribution Width 14.0 11.8-14.3 % Platelet Count 330 140-450 10^3/uL Mean Platelet Volume 8.0 6.9-10.8 fL Neutrophils (%) (Auto) 73.3 37.0-80.0 % Lymphocytes (%) (Auto) 16.6 10.0-50.0 % Monocytes (%) (Auto) 6.1 0.0-12.0 % Eosinophils (%) (Auto) 3.4 0.0-7.0 % Basophils (%) (Auto) 0.6 0.0-2.0 % Neutrophils # (Auto) 7.5 1.6-8.6 10 ^3/uL Lymphocytes # (Auto) 1.7 0.4-5.4 10 ^3/uL Monocytes # (Auto) 0.6 0-1.3 10 ^3/uL Eosinophils # (Auto) 0.3 0-0.8 10 ^3/uL Basophils # (Auto) 0.1 0-0.2 10 ^3/uL Nucleated Red Blood Cells 0.0 % Sodium Level 140 136-145 mmol/L Potassium Level 3.8 3.5-5.1 mmol/L Chloride Level 106 98-107 mmol/L Carbon Dioxide Level 21 20-31 mmol/L Anion Gap 13 5-15 Blood Urea Nitrogen 11 9-23 mg/dL Creatinine 1.15 H 0.550-1.02 mg/dL Glomerular Filtration Rate Calc 53 >90 mL/min BUN/Creatinine Ratio 9.6 L 10.0-20.0 Serum Glucose 222 H 74-106 mg/dL Calcium Level 9.5 8.7-10.4 mg/dL Troponin I High Sensitivity < 3 L </=34 ng/L B-Type Natriuretic Peptide 24.16 0-100 pg/mL SEPSIS Sepsis Screen Date sepsis recognized/suspect: Jun 07, 2025 Time Sepsis recognized/suspect: 2232 Recent Procedure: No On Antibiotic Therapy: No Respiratory Rate >20: No Heart Rate >90: No Temp<36 C (96.8 F) or >38.3 C: No SBP <90 or MAP <65 mmHG: No New Acute Mental Status Change: No Is the patient on CPAP, BIPAP,: No Physician Orders Admit (06/07/25 23:23) Enoxaparin Sodium (Lovenox) (06/08/25 10:00) Complete Blood Count (06/08/25 04:00) Comprehensive Metabolic Panel (06/08/25 04:00) Cardiac Diet-2gna,Lofat,Lochol (06/08/25 Breakfast) Condition: Critical (06/07/25 23:23) Acetaminophen Tablet (Tylenol Tablet) (06/08/25 00:00) Bedrest With Bathroom Privileg (06/07/25 23:23) Oxygen By Nasal Cannula (06/07/25 23:23) Stat Ekg For Chest Pain (06/07/25 23:23) Notify Md Of Changes From Base (06/07/25 23:23) Windows Migration Technician For 24 Hours (06/07/25 23:23) Emergency Dysrhythmia Protocol (06/07/25 23:23) Rhythm Strips Once Every Shift (06/07/25 23:23) Ceftriaxone 2gm/50ml (Rocephin 2gm/50ml) (06/08/25 10:00) Azithromycin Tablet (Zithromax Tablet) (06/08/25 10:00) Albuterol Medneb (Ventolin Medneb) (06/08/25 06:00) Ipratropium Medneb (Atrovent Medneb) (06/08/25 06:00) Drug Screen (06/07/25 23:29) Respiratory Culture W/ Gs (06/07/25 23:40) Blood Culture (06/07/25 23:40) Urine Bacterial Culture (06/07/25 23:40) Cilostazol (Pletal) (06/08/25 10:00) Ivabradine (Corlanor) (06/08/25 10:00) Hemoglobin A1c (06/08/25 02:56) Insulin Lantus (Glargine) (Lantus) (06/08/25 22:00) Glucose Blood (Accu-Chek Comfort Curve T (06/08/25 07:00) Insulin R (Human) (Insulin R) (06/08/25 22:00) Insulin R (Human) (Insulin R) (06/08/25 07:00) Dextrose 50% Syringe (06/08/25 03:15) Furosemide Tablet (Lasix Tablet) (06/08/25 10:00) Vital Signs Date Time Temp Pulse Resp B/P (MAP) Pulse Ox O2 Delivery O2 Flow Rate FiO2 06/08/25 01:28 66 16 98 Room Air* 0 21 06/08/25 01:28 98.1 66 16 100/58 (72) 98 98.1 06/07/25 23:59 97.8 78 20 116/67 98 21 97.8 06/07/25 22:22 78 20 98 Room Air 06/07/25 22:22 97.8 78 20 116/67 (83) 98 97.8 06/07/25 22:17 65 Laboratory Tests Test 06/07/25 23:42 Lactic Acid Level 1.0 mmol/L (0.4-2.0) Medications Medications Dose Ordered Sig/Shelby Route Start Time Stop Time Status Last Admin Dose Admin Azithromycin 500 mg ONCE ONCE PO 06/07/25 23:30 06/07/25 23:39 DC 06/08/25 00:16 500 MG Ceftriaxone Sodium/Dextrose 50 ml @ 50 mls/hr ONCE ONCE IV 06/07/25 23:30 06/08/25 00:29 DC 06/08/25 00:29 50 MLS/HR Furosemide 40 mg ONCE ONCE IV 06/07/25 15:30 06/07/25 15:31 DC 06/07/25 18:06 40 MG Assessment/Plan Assessment/Plan Pneumonia Gram-positive vs Gram-negative Acute complicated UTI Neurogenic bladder - UA positive for UTI - IV ceftriaxone - azithromycin - albuterol, ipratropium med-nebs - check sputum culture, urine culture, blood culture - COVID, influenza Diabetes mellitus - HbA1c - Lantus 18, moderate insulin sliding scale Chronic heart failure - recent echo EF showed 55% - resume home meds CKD stage 3 - avoid nephrotoxic drugs history of Multiple falls history of Gandhi's palsy Morbid obesity BMI 31.4 Patient counseled on diet, exercise, lifestyle modifications for 18 minutes DVT prophylaxis: Lovenox Goals of care addressed with the patient for more than 27 minutes: Full code status Case discussed with Dr. Seth , patient and nurse Plan discussed with: Patient My Orders Orders - NADJA GONZALES RESIDENT Procedure Category Date Status Time Admit ADMIT 06/07/25 Transmitted 23:23 Enoxaparin Sodium PHA 06/08/25 In Process (Lovenox) 10:00 Complete Blood Count LAB 06/08/25 Logged 04:00 Comprehensive LAB 06/08/25 Logged Metabolic Panel 04:00 Cardiac DIET 06/08/25 Transmitted Diet-2gna,Lofat,Lochol Breakfast Condition: Critical MARITZA 06/07/25 In Process 23:23 Acetaminophen Tablet PHA 06/08/25 In Process (Tylenol Tablet) 00:00 Bedrest With Bathroom MARITZA 06/07/25 In Process Privileg 23:23 Oxygen By Nasal RT 06/07/25 Transmitted Cannula 23:23 Stat Ekg For Chest MARITZA 06/07/25 In Process Pain 23:23 Notify Md Of Changes MARITZA 06/07/25 In Process From Base 23:23 Windows Migration Technician For MARITZA 06/07/25 In Process 24 Hours 23:23 Emergency Dysrhythmia MARITZA 06/07/25 In Process Protocol 23:23 Rhythm Strips Once MARITZA 06/07/25 In Process Every Shift 23:23 Ceftriaxone 2gm/50ml PHA 06/08/25 In Process (Rocephin 2gm/50ml) 10:00 Azithromycin Tablet PHA 06/08/25 In Process (Zithromax Tablet) 10:00 Albuterol Medneb PHA 06/08/25 In Process (Ventolin Medneb) 06:00 Ipratropium Medneb PHA 06/08/25 In Process (Atrovent Medneb) 06:00 Drug Screen LAB 06/07/25 Logged 23:29 Respiratory Culture MIGUEL 06/07/25 Logged W/ Gs 23:40 Blood Culture MIGUEL 06/07/25 In Process 23:40 Urine Bacterial MIGUEL 06/07/25 Logged Culture 23:40 Cilostazol (Pletal) PHA 06/08/25 In Process 10:00 Ivabradine (Corlanor) PHA 06/08/25 In Process 10:00 Hemoglobin A1c LAB 06/08/25 Logged 02:56 Insulin Lantus PHA 06/08/25 In Process (Glargine) (Lantus) 22:00 Glucose Blood PHA 06/08/25 In Process (Accu-Chek Comfort 07:00 Insulin R (Human) PHA 06/08/25 In Process (Insulin R) 22:00 Insulin R (Human) PHA 06/08/25 In Process (Insulin R) 07:00 Dextrose 50% Syringe PHA 06/08/25 In Process 03:15 Furosemide Tablet PHA 06/08/25 In Process (Lasix Tablet) 10:00 Visit Coding STANDARD RES Billing Provider: BRAULIO SETH MD Date of Service if different f: Jun 07, 2025 Common Visit Codes: [id number]-[id number] INP/OBS CARE (HIGH) Secondary Visit Codes: 43133-[id number] CARE PLAN 30 MINUTES NADJA GONZALES Jun 08, 2025 03:23
[2025-06-08 04:38] LABS: Benzodiazephine Screen, Urine Neg (NEGATIVE)
[2025-06-08 04:43] LABS: Amphetamine Screen, Urine Neg (NEGATIVE); Barbiturate Scree,Urine Neg (NEGATIVE); Cannabinoid Screen, Urine Neg (NEGATIVE); Cocaine Screen, Urine Neg (NEGATIVE); Opiate Scree,Urine Neg (NEGATIVE); Phencyclidine Screen, Urine Neg (NEGATIVE)
[2025-06-08] MEDS: ACCU-CHEK COMFORT CURVE STRIP VI SCH (05:30)
[2025-06-08] MEDS: InsuLIN REG 1unit/0.01ml Soln (100units/ml) SC SCH ×2 (05:33→22:00)
[2025-06-08] MEDS: IPRATROPIUM BROM 0.5 MG/2.5ML INH SOL NEB SCH (06:22)
[2025-06-08] MEDS: ALBUTEROL SULF 2.5 MG/0.5ML(0.5%) NEB SOLN NEB SCH (06:22)
[2025-06-08 07:38] LABS: Hematocrit 37.7 % (36.0-46.0); Hemoglobin 12.7 g/dL (12.2-16.2); Mean Corpuscular Hemoglobin 29.3 pg (28.0-32.0); Mean Corpuscular Volume 86.7 fL (80.0-100.0); Nucleated Red Blood Cells % 0.1 %
[2025-06-08 07:45] LABS: Alanine Aminotransferase 11 U/L (7-40); Albumin 4.1 g/dL (3.2-4.8); Alkaline Phosphatase 94 U/L (46-116); Anion Gap 9 (5-15); BUN/Creatinine Ratio 13.4 (10.0-20.0); Blood Urea Nitrogen 15 mg/dL (9-23); Calcium 9.0 mg/dL (8.7-10.4); Carbon Dioxide 28 mmol/L (20-31); Chloride 103 mmol/L (98-107); Glucose 78 mg/dL (74-106); Potassium 3.6 mmol/L (3.5-5.1); Sodium 140 mmol/L (136-145); Total Protein 7.1 g/dL (5.7-8.2)
[2025-06-08 07:53] LABS: Bilirubin, Total 0.2 mg/dL (0.2-1.0)
[2025-06-08] MEDS: ENOXAPARIN SOD 40 MG/0.4 ML SYRINGE SC SCH (10:04)
[2025-06-08] MEDS: FUROSEMIDE 20 MG TAB PO SCH (10:05)
[2025-06-08] MEDS: AZITHROMYCIN 250 MG TAB PO SCH (10:06)
[2025-06-08] MEDS: CILOSTAZOL 100 MG TAB PO SCH (10:06)
[2025-06-08] MEDS: IVABRADINE 5 MG TAB PO SCH (10:06)
--- NOTE | 2025-06-08 11:53 | DVHPNRES ---
Progress Note Date Seen: Jun 08, 2025 Resident Creating Document: TOM MCKNIGHT RESIDENT Medical Necessity Reason Pt with a Central, PICC or Fol: No Subjective Review of Systems Ms. Mejia is a 64 year old female with PMHx of CHF, chronic back pain, scoliosis, hypertension, neurogenic bladder, and COPD, who presented to [facility] with chief complaint of persistent cough. The patient states that the week prior presented flu-like symptoms including headache, congestion, and generalized weakness. States in the last 3 days she has had onset of persistent wet cough associated with increased expectoration of green sputum. She denies fever, shortness of breath, nausea, vomiting, chest pain, abdominal pain, and palpitations. She states that due to persistence of symptoms, she presented to the ED for evaluation. On evaluation in the ED, she was afebrile, normocardic, normotensive, saturating adequately on room air. Initial labs are significant for mildly elevated creatinine and hyperglycemia. UA consistent with UTI. Chest Xray shows no acute disease. She was started on breathing treatments, IV antibiotics, and was admitted for further work up and monitoring. Prior surgical history: Denies Allergies: Denies Social: Denies previous drug, alcohol, and tobacco use PCP: Dr. Garcia 06/08/2025: Patient seen at bedside. She states she feels fatigued and complains of persistent wet cough. She is afebrile, normocardic, normotensive, and saturating adequately on room air. Follow up labs are within normal range. She continues on IV antibiotics and breathing treatment. We will continue to monitor. Review of Systems: Constitutional: Denies weight loss, fever and chills. HEENT: Denies changes in vision and hearing. Respiratory: Refers persistent productive cough Cardiovascular: Denies chest discomfort or palpitations GI: Denies abdominal distention, abdominal pain, diarrhea : Denies dysuria and urinary frequency. Musculoskeletal: denies symptoms Skin: Denies rash and pruritus. Neurological: denies dizziness headache vision or hearing problems Objective vital signs Vital Sign Date Time Temp Pulse Resp B/P (MAP) Pulse Ox O2 Delivery O2 Flow Rate FiO2 06/08/25 10:05 128/68 06/08/25 09:51 66 16 100 06/08/25 09:45 Room Air 0.0 06/08/25 09:45 21 21 06/08/25 08:50 97.9 97.9 Total Intake and Output 06/07/25 06/07/25 06/08/25 15:00 23:00 07:00 Intake Total 0 ml Balance 0 ml medications Current Medications Medications Dose Ordered Sig/Shelby Route Start Time Stop Time Status Last Admin Dose Admin Enoxaparin Sodium 40 mg DAILY SC 06/08/25 10:00 06/08/25 10:04 40 MG Acetaminophen 650 mg Q6HR PO 06/08/25 00:00 06/08/25 05:30 650 MG Ceftriaxone Sodium/Dextrose 50 ml @ 50 mls/hr DAILY IV 06/08/25 10:00 06/08/25 10:05 50 MLS/HR Azithromycin 500 mg DAILY PO 06/08/25 10:00 06/08/25 10:06 500 MG Albuterol 2.5 mg Q4HWA [facility] 06/08/25 06:00 06/08/25 09:45 2.5 MG Ipratropium [place] 0.5 mg Q4HWA [facility] 06/08/25 06:00 06/08/25 09:45 0.5 MG Cilostazol 100 mg BID PO 06/08/25 10:00 06/08/25 10:06 100 MG Ivabradine 5 mg BID PO 06/08/25 10:00 06/08/25 10:06 5 MG Insulin Glargine 18 units HS SC 06/08/25 22:00 Diagnostic Test (Pha) 1 strip ACHS 06/08/25 07:00 06/08/25 05:30 1 STRIP Insulin Human Regular HS SC 06/08/25 22:00 Insulin Human Regular AC SC 06/08/25 07:00 Dextrose 50 ml UD PRN IV 06/08/25 03:15 Furosemide 20 mg DAILY PO 06/08/25 10:00 06/08/25 10:05 20 MG Examination General: The patient alert and oriented in person place and time. Patient following commands HEENT: Normocephalic, atraumatic, normal reactive pupils, EOM intact, strabismus of the right is noted, pink conjunctiva, pink moist mucous membrane Respiratory/pulmonary: Bilateral chest expansion, no pain on palpation of chest wall, clear breath sounds without aggregate wheezing or crackles Cardiovascular: Normal RRR, normal S1 and S2, no murmurs Abdomen: Abdomen nondistended, normal bowel sounds, soft, there is no pain to palpation in any of the abdominal quadrants, no palpable masses. Extremities: No deformities, there is no peripheral edema present at the lower extremities, normal pulses Skin: No rashes or pruritus, there is no sacral edema present at this time. Neurological: Intact cranial nerves with no focal neurologic deficits laboratory and microbiology Laboratory Tests 06/08/25 05:57 Test 06/08/25 05:57 Range/Units Serum Glucose 78 74-106 mg/dL Problem List/Assessment/Plan Problem List/Assessment/Plan Assessment and Plan: Pneumonia, likely gram positive/gram negative - Ceftriaxone 1 g IV daily - Azithromycin 500 mg IV daily - Blood culture and Respiratory culture ordered - COVID/ Influenza negative Acute Complicated UTI - Ceftriaxone 1 g IV daily COPD, not in exacerbation Chronic HFpEf, not in exacerbation - Echocardiogram 03/22/2025: EF > 55% - Furosemide 20 mg PO daily Peripheral artery disease - Cilosatzol 100 mg PO BID daily CKD stage 3 - Avoid nephrotoxic drugs - Monitor kidney function Obesity, 31.4 - I have counseled the patient on healthy life style modifications for over 14 minutes. DVT prophylaxis: Lovenox 40 mg SC daily GI prophylaxis: Not indicated Nutrition: Cardiac Goals of care discussed with the patient for over 32 minutes. FULL CODE. Case discussed with Dr. Green Plan discussed with: Patient, Other (Nurse) Sepsis reassessment post fluid Capillary Refill: < 3 seconds Visit Coding STANDARD RES Billing Provider: BRAULIO GREEN MD Date of Service if different f: Jun 08, 2025 Common Visit Codes: [id number] INP/OBS CARE(HIGH) TOM MCKNIGHT RESIDENT Jun 08, 2025 11:53 BRAULIO GREEN MD Jun 13, 2025 13:50
[2025-06-08] MEDS ORDERED: ATOR10TA52 (16:02)
[2025-06-08] MEDS ORDERED: EMPA1TAB PO (16:04)
[2025-06-08] MEDS ORDERED: LEVO25TA6 PO (16:05)
[2025-06-08] MEDS ORDERED: IVAB5TAB2 PO (16:07)
[2025-06-08] MEDS: PANTOPRAZOLE 40 MG TAB PO ONE (16:53)
[2025-06-08] MEDS: DOXYCYCLINE 100 MG TAB/CAP PO SCH (21:58)
[2025-06-08] MEDS: INSULIN LANTUS (GLARGINE) 1 /0.01ml (100units/ml) SC SCH (22:00)
[2025-06-08] MEDS: HYDROcodone-ACET 5/325MG TAB PO ONE (23:12)
[2025-06-08] MEDS: MELATONIN 5 MG TAB PO ONE (23:12)
[2025-06-09] VITALS (11 sets, daily range): BP systolic 112–128; BP diastolic 65–72; PULSE 61–70; RESP 16–18; TEMP 97.7–98.3; O2SAT 96–100
[2025-06-09] MEDS: PANTOPRAZOLE 40 MG TAB PO SCH (05:56)
[2025-06-09 06:29] LABS: Hematocrit 34.6 % (36.0-46.0); Hemoglobin 11.9 g/dL (12.2-16.2); Mean Corpuscular Hemoglobin 29.5 pg (28.0-32.0); Mean Corpuscular Volume 86.0 fL (80.0-100.0); Nucleated Red Blood Cells % 0.1 %
[2025-06-09 06:43] LABS: Anion Gap 9 (5-15); Carbon Dioxide 27 mmol/L (20-31); Chloride 105 mmol/L (98-107); Sodium 141 mmol/L (136-145)
[2025-06-09 06:45] LABS: Calcium 9.1 mg/dL (8.7-10.4)
[2025-06-09 06:47] LABS: Potassium 3.3 mmol/L (3.5-5.1)
[2025-06-09 06:50] LABS: BUN/Creatinine Ratio 17.7 (10.0-20.0); Blood Urea Nitrogen 17 mg/dL (9-23); Glucose 91 mg/dL (74-106)
[2025-06-09] MEDS: POTASSIUM CHL 20 Meq TABLET PO ONE (10:09)
[2025-06-09] MEDS ORDERED: CEPH250C PO (12:12)
[2025-06-09] MEDS ORDERED: DOXY100C4 PO (12:12)
--- NOTE | 2025-06-09 13:24 | DVHDSRES ---
Discharge Summary Date of Admission Resident Creating Document: TOM MCKNIGHT RESIDENT Jun 07, 2025 at 23:23 Date of Discharge: Jun 09, 2025 Admitting Diagnosis CHF Wounds: No wounds Labs/Diagnostic Data: Laboratory Results Test 06/09/25 05:01 06/08/25 22:02 06/08/25 05:57 06/07/25 23:55 White Blood Count 7.1 10^3/uL (4.4-10.8) Red Blood Count 4.02 10^6/uL (4.0-5.20) Hemoglobin 11.9 g/dL (12.2-16.2) Hematocrit 34.6 % (36.0-46.0) Mean Corpuscular Volume 86.0 fL (80.0-100.0) Mean Corpuscular Hemoglobin 29.5 pg (28.0-32.0) Mean Corpuscular Hemoglobin Concent 34.3 g/dL (32.0-36.0) Red Cell Distribution Width 13.3 % (11.8-14.3) Platelet Count 265 10^3/uL (140-450) Mean Platelet Volume 8.1 fL (6.9-10.8) Neutrophils (%) (Auto) 48.5 % (37.0-80.0) Lymphocytes (%) (Auto) 34.8 % (10.0-50.0) Monocytes (%) (Auto) 11.1 % (0.0-12.0) Eosinophils (%) (Auto) 4.9 % (0.0-7.0) Basophils (%) (Auto) 0.7 % (0.0-2.0) Neutrophils # (Auto) 3.5 10 ^3/uL (1.6-8.6) Lymphocytes # (Auto) 2.5 10 ^3/uL (0.4-5.4) Monocytes # (Auto) 0.8 10 ^3/uL (0-1.3) Eosinophils # (Auto) 0.4 10 ^3/uL (0-0.8) Basophils # (Auto) 0 10 ^3/uL (0-0.2) Nucleated Red Blood Cells 0.1 % Sodium Level 141 mmol/L (136-145) Potassium Level 3.3 mmol/L (3.5-5.1) Chloride Level 105 mmol/L (98-107) Carbon Dioxide Level 27 mmol/L (20-31) Anion Gap 9 (5-15) Blood Urea Nitrogen 17 mg/dL (9-23) Creatinine 0.96 mg/dL (0.550-1.02) Glomerular Filtration Rate Calc 65 mL/min (>90) BUN/Creatinine Ratio 17.7 (10.0-20.0) Serum Glucose 91 mg/dL (74-106) Calcium Level 9.1 mg/dL (8.7-10.4) POC Glucose 113 mg/dl (70-106) Hemoglobin A1c 5.3 % A1C (<5.7) Total Bilirubin 0.2 mg/dL (0.2-1.0) Aspartate Amino Transferase (AST) 13 U/L (13-40) Alanine Aminotransferase (ALT) 11 U/L (7-40) Alkaline Phosphatase 94 U/L (46-116) Total Protein 7.1 g/dL (5.7-8.2) Albumin 4.1 g/dL (3.2-4.8) Influenza Type A Antigen Negative (Negative) Influenza Type B Antigen Negative (Negative) SARS-CoV-2 Antigen (Rapid) Negative (NEGATIVE) Test 06/07/25 23:42 06/07/25 15:22 06/07/25 15:12 Lactic Acid Level 1.0 mmol/L (0.4-2.0) Urine Color Light-brown (Yellow) Urine Clarity Ex.turbid (Clear) Urine pH 6.5 (5.0-9.0) Urine Specific [place] 1.015 (1.001-1.035) Urine Protein Trace (Negative) Urine Ketones Negative (Negative) Urine Blood 1+ /uL (Negative) Urine Nitrite 1+ (Negative) Urine Bilirubin Negative (Negative) Urine Urobilinogen Normal mg/dL (Negative) Urine Leukocyte Esterase 3+ /uL (Negative) Urine RBC 11 /hpf (0 - 4) Urine WBC Clumps Present /hpf (None Seen) Urine Microscopic WBC 1285 /HPF (0-5) Urine Squamous Epithelial Cells Mod /hpf (<5) Urine Bacteria Few /hpf (None Seen) Urine Mucus Few (None Seen) Urine Yeast (Budding) Few /hpf (None Seen) Urine Glucose 4+ mg/dL (Normal) Urine Opiates Screen Neg (NEGATIVE) Urine Fentanyl Screen Neg (NEGATIVE) Urine Barbiturates Screen Neg (NEGATIVE) Urine Phencyclidine Screen Neg (NEGATIVE) Urine Amphetamines Screen Neg (NEGATIVE) Urine Benzodiazepines Screen Neg (NEGATIVE) Urine Cocaine Screen Neg (NEGATIVE) Urine Cannabinoids Screen Neg (NEGATIVE) Troponin I High Sensitivity < 3 ng/L (</=34) B-Type Natriuretic Peptide 24.16 pg/mL (0-100) Other Laboratory Tests 06/09/25 05:01 Brief Hx & Hospital Course: Ms. Mejia is a 64 year old female with PMHx of CHF, chronic back pain, scoliosis, hypertension, neurogenic bladder, and COPD, who presented to [facility] with chief complaint of persistent cough. The patient states that the week prior presented flu-like symptoms including headache, congestion, and generalized weakness. States in the last 3 days she has had onset of persistent wet cough associated with increased expectoration of green sputum. She denies fever, shortness of breath, nausea, vomiting, chest pain, abdominal pain, and palpitations. She states that due to persistence of symptoms, she presented to the ED for evaluation. On evaluation in the ED, she was afebrile, normocardic, normotensive, saturating adequately on room air. Initial labs are significant for mildly elevated creatinine and hyperglycemia. UA consistent with UTI. Chest Xray shows no acute disease. She was started on breathing treatments, IV antibiotics, and was admitted for further work up and monitoring. Antibiotics were adjusted as needed. Blood cultures and sputum cultures are negative. On evaluation today, that patient states that she is feel better, she has slept well, is tolerating oral diet, and ambulating without difficulty. Vitals are within normal range. Follow up labs are within normal range as well. She is considered stable for discharge home with oral Doxycycline and Keflex to complete antibiotic regimen. She will follow up in the discharge clinic within 72 hours and will be seen by her PCP. All medications, indications, treatment regimens, and potential side effects have been explained. All questions and concerns have been addressed. She states she understands and agrees. Physical Exam General: The patient alert and oriented in person place and time. Patient following commands HEENT: Normocephalic, atraumatic, normal reactive pupils, EOM intact, strabismus of the right is noted, pink conjunctiva, pink moist mucous membrane Respiratory/pulmonary: Bilateral chest expansion, no pain on palpation of chest wall, clear breath sounds without aggregate wheezing or crackles Cardiovascular: Normal RRR, normal S1 and S2, no murmurs Abdomen: Abdomen nondistended, normal bowel sounds, soft, there is no pain to palpation in any of the abdominal quadrants, no palpable masses. Extremities: No deformities, there is no peripheral edema present at the lower extremities, normal pulses Skin: No rashes or pruritus, there is no sacral edema present at this time. Neurological: Intact cranial nerves with no focal neurologic deficits Goals of care and discharge plan discussed with the patient for over 20 minutes. Case discussed with Dr. Seth Operations or Procedures CHEST RADIOGRAPH INDICATION: sob TECHNIQUE: Single frontal view of the chest was obtained COMPARISON: XY CHEST PORTABLE on DOS: 02/28/24, XY CHEST PORTABLE on DOS: 02/26/24, XY CHEST TWO VIEWS ROUTINE on DOS: 01/17/24, XY CHEST PORTABLE on DOS: 01/05/23, CHEST TWO VIEWS ROUTINE on DOS: 03/10/22 FINDINGS: Lines and Tubes: None Lungs: Clear Pleura: No effusion. No pneumothorax. Cardiomediastinal contours: Unremarkable Bones: Unremarkable IMPRESSION: No acute disease. Condition at Discharge: Stable Final Diagnosis/Problems List Pneumonia, likely gram positive/gram negative Acute Complicated UTI COPD, not in exacerbation Chronic HFpEf, not in exacerbation Peripheral artery disease CKD stage 3 Obesity, 31.4 Discharge Disposition: Home Discharge Instruct/Medications Diet: Cardiac 2g Na,low cholest Activity: No Restrictions, As Tolerated Follow Up/Referral: Follow up in discharge clinic Follow up with PCP Medications: Per EMR Scheduled Azithromycin (Azithromycin), 250 MG PO DAILY Benztropine Mesylate (Benztropine Mesylate), 0.5 MG PO DAILY, (Reported) Oucpnpytql-Ucwkcwrahyqylu-Elwh (Breztri Aerosphere 160-9-4.8 Mcg/Act), 1 AER IN BID, (Reported) Cephalexin (Keflex Capsule), 250 MG PO QID Cilostazol (Cilostazol), 100 MG PO BID, (Reported) Doxycycline Hyclate (Doxycycline Hyclate), 100 MG PO BID Empagliflozin (Jardiance), 1 TAB PO DAILY, (Reported) Furosemide (Furosemide), 20 MG PO BID, (Reported) Hydrocodone-Acetaminophen (Hydrocodone Bitartrate/AC 7.5-300 mg), 1 TAB PO Q6HP, (Reported) Ivabradine HCl (Ivabradine Hydrochloride), 1 TAB PO BID, (Reported) Ivabradine Hydrochloride (Corlanor), 5 MG PO BID, (Reported) Levothyroxine Sodium (Levothyroxine Sodium), 1 TAB PO QAM, (Reported) Magnesium Bisglycinate (Mag Glycinate), 500 MG PO DAILY, (Reported) Metoprolol Tartrate (Metoprolol Tartrate), 25 MG PO BIDWM, (Reported) Omeprazole (Omeprazole Dr), 40 MG PO DAILY, (Reported) Paroxetine Hydrochloride (Paroxetine Hydrochloride), 40 MG PO DAILY, (Reported) Semaglutide (Ozempic), 2 MG SC QWEEKLY, (Reported) Temazepam (Restoril), 1 CAP PO QPM, (Reported) Miscellaneous Medications Atorvastatin Calcium (Atorvastatin Calcium), (Reported) Patients Own Medication (Patients Own Medication), 100 MG PO, (Reported) Discharge Statement: "Patient was advised to return to the ER or call 911 if any headaches, dizziness, shortness of breath, chest pain, abdominal pain, bleeding, fevers, or worsening of medical condition. Patient was counseled about treatment plan, medications, possible side effects, patientverbalized understanding. All questions were answered to the best of my ability. This discharge took greater then 30 minutes in planning, reviewing documentation, counseling the patient, and discussing with other team members." ASSESSMENT ASSESSMENT Assessment Pneumonia (gram positive/gram negative) Visit Coding STANDARD RES Billing Provider: BRAULIO SETH MD Date of Service if different f: Jun 09, 2025 Common Visit Codes: 44690-XAM/OBS DISCH DAY >30min TOM MCKNIGHT RESIDENT Jun 09, 2025 13:24 BRAULIO SETH MD Jun 13, 2025 13:59
== END 2025-06-09 14:59 | disposition home or self-care (01) | DRG 178 ==
LOC: ER 14:00 → OVERFLOW 23:23 → WEST WING 06-08 03:41
PROVIDERS: ADMIT Student in an Organized Health Care Education/Training Program; ATTEND Student in an Organized Health Care Education/Training Program
DX: J15.69 Pneumonia due to other Gram-negative bacteria (principal); I13.0 Hypertensive heart and chronic kidney disease with heart failure and stage 1 through stage 4 chronic kidney disease, or unspecified chronic kidney disease; I50.32 Chronic diastolic (congestive) heart failure; J44.0 Chronic obstructive pulmonary disease with (acute) lower respiratory infection; N39.0 Urinary tract infection, site not specified; J15.9 Unspecified bacterial pneumonia; E11.22 Type 2 diabetes mellitus with diabetic chronic kidney disease; E66.01 Morbid (severe) obesity due to excess calories; N18.30 Chronic kidney disease, stage 3 unspecified; Z20.822 Contact with and (suspected) exposure to COVID-19; N31.9 Neuromuscular dysfunction of bladder, unspecified; E11.51 Type 2 diabetes mellitus with diabetic peripheral angiopathy without gangrene; Z80.0 Family history of malignant neoplasm of digestive organs; Z80.6 Family history of leukemia; Z88.5 Allergy status to narcotic agent; Z68.31 Body mass index [BMI] 31.0-31.9, adult
CPT/HCPCS: 36415; 71045; 80048; 80053; 80307; 81001; 82962; 83036; 83605; 83880; 84484; 85025; 87040; 87070; 87086; 87088; 87186; 87205; 87426; 87804; 93005; 94640; 96374; G0378